=== PATIENT | female | born 1935 | race Caucasian/White ===

== ENCOUNTER → 2019-09-22 | Outpatient (CLI) | payer MEDICARE | END | disposition home or self-care (01) | LOC: WOUND 08:33 | PROVIDERS: ATTEND Internal Medicine | DX: K12.1 Other forms of stomatitis (principal); I10 Essential (primary) hypertension; E78.5 Hyperlipidemia, unspecified; E03.9 Hypothyroidism, unspecified; I48.91 Unspecified atrial fibrillation; Z90.49 Acquired absence of other specified parts of digestive tract; Z90.710 Acquired absence of both cervix and uterus; Z79.82 Long term (current) use of aspirin | CPT/HCPCS: G0463 ==

== ENCOUNTER 2020-01-11 08:00 | Outpatient (CLI) | payer MEDICARE ==
[~2020-01-11] VITALS: Ht 172.7 cm; Wt 66.4 kg
[2020-01-11 15:18] LABS: BASOPHILS % (AUTO) 1 % (0-1); EOSINOPHILS % (AUTO) 3 % (1-7); LYMPHOCYTES % (AUTO) 30 % (22-44); MEAN CORPUSCULAR HEMOGLOBIN 29.8 pg (27.0-34.8); MEAN CORPUSCULAR HGB CONC 32.1 g/dL (32.4-35.8); MEAN PLATELET VOLUME 9.5 fL (7.4-10.4); MONOCYTES % (AUTO) 20 % (2-9); NEUTROPHILS % (AUTO) 45 % (42-75); PLATELET COUNT 129 x10^3/uL (130-400); RED BLOOD COUNT 4.02 x10^6/uL (3.82-5.3); RED CELL DISTRIBUTION WIDTH 17.6 % (9.6-15.2)
[2020-01-11 15:20] LABS: ALANINE AMINOTRANSFERASE 17 U/L (12-78); ALBUMIN 2.6 g/dL (3.4-5.0); ANION GAP 2 mmol/L (5-15); CALCIUM 8.4 mg/dL (8.5-10.1); CHLORIDE 114 mmol/L (98-107); CREATININE 1.44 mg/dL (0.55-1.02)
[2020-01-11 15:23] LABS: ALKALINE PHOSPHATASE 159 U/L (45-117); BILIRUBIN,TOTAL 0.3 mg/dL (0.2-1.0); TOTAL PROTEIN 7.8 g/dL (6.4-8.2)
[2020-01-11 15:48] LABS: MD SCAN
[2020-01-17] MEDS ORDERED: TIMO5DRO33 EACHEYE (09:01)
[2020-01-17] MEDS ORDERED: BIOT25005 PO (09:01)
[2020-01-17] MEDS ORDERED: LATA7.5D EACHEYE (09:01)
[2020-01-17] MEDS ORDERED: FURO40TA6 PO (09:01)
[2020-01-17] MEDS ORDERED: LOVA10TA PO (09:01)
[2020-01-17] MEDS ORDERED: PANT40TA6 PO (09:01)
[2020-01-17] MEDS ORDERED: FOLI1TAB44 PO (09:01)
[2020-01-17] MEDS ORDERED: LEVO112T4 PO (09:01)
[2020-01-17] MEDS ORDERED: FERR-46 PO (09:01)
[2020-01-17] MEDS ORDERED: ASPI81TA45 PO (09:01)
[2020-01-17] MEDS ORDERED: METO-99 PO (09:01)
[2020-01-17] MEDS ORDERED: PERSERVISION AREDS PO (09:01)
[2020-01-17] MEDS ORDERED: POTA10TA31 PO (09:01)
== END 2020-01-11 23:59 | disposition home or self-care (01) ==
LOC: STAR 08:00 → EDSTATUS 01-14 13:30
PROVIDERS: ATTEND Surgery
DX: Z01.812 Encounter for preprocedural laboratory examination (principal); K63.2 Fistula of intestine; Z20.828 Contact with and (suspected) exposure to other viral communicable diseases; I51.7 Cardiomegaly
CPT/HCPCS: 36415; 80053; 85025; 87635; 93005

== ENCOUNTER → 2020-11-30 | Outpatient (CLI) | payer MEDICARE ==
[~2020-11-30] MED LIST: ASPI81TA45 PO; BIOT25005 PO; FERR-46 PO; FOLI1TAB44 PO; FURO40TA6 PO; GADOTERATE 7.5 MMOL/15 ML VIAL ONE; GLUCAGON 1 MG ONE; LATA7.5D EACHEYE; LEVO112T4 PO; LOVA10TA PO; METO-99 PO; PANT40TA6 PO; PERSERVISION AREDS PO; POTA10TA31 PO; TIMO5DRO33 EACHEYE
== END | disposition home or self-care (01) ==
LOC: CFH 08:05
PROVIDERS: ATTEND Internal Medicine Gastroenterology
DX: K44.9 Diaphragmatic hernia without obstruction or gangrene (principal); K57.32 Diverticulitis of large intestine without perforation or abscess without bleeding; R19.7 Diarrhea, unspecified; E46 Unspecified protein-calorie malnutrition
CPT/HCPCS: 72197; 74183; A9575; J1610